=== PATIENT | female | born 1955 | race Caucasian/White ===

== ENCOUNTER 2016-06-25 10:41 | Emergency (ER) | payer MEDICARE, BC ==
--- NOTE | ~2016-06-25 | CT2 ---
[facility] A Service of [facility] RADIOLOGY TEXT RESULTS PATIENT: STEFFANIE CLIFFORD LOCATION: [facility] : 53 UNIT #: [id number] AGE: [address]: Janet Medeiros MD SEX: F ORDER DR: [id number] [place], [place] [address] [id number] E MR#: [id number] Acc #: [id number] NAME: STEFFANIE CLIFFORD : 1955 SEX: F STUDY DATE/TIME: 06/25/2016 11:47 UNIT: [facility] ROOM: STUDY DESCRIPTION: CT Abd and Pelv W Cont Attending Physician: Janet Medeiros M.D. Ordering Physician: Janet Medeiros M.D. Primary Care Physician: Harriet Gasca A.P.R.N. MEDICAL IMAGING REPORT This report is preliminary unless electronic signature is present EXAM CT abdomen and pelvis with contrast. INDICATION Left-sided abdominal pain for the past 2 weeks. PROCEDURE Contrast-enhanced CT of the abdomen and pelvis. This CT exam was performed with one or more of the following radiation dose reduction techniques: automatic exposure control, adjustment of mA and/or kV according to patient size, and iterative reconstruction. COMPARISON 02/19/2015 FINDINGS ABDOMEN WITH CONTRAST: There is linear scarring in the lung bases, similar to the prior. The liver, spleen, kidneys, adrenal glands, pancreas, gallbladder unremarkable. Small hiatal hernia. Small bowel loops are nondilated. There is postsurgical change in the descending colon. There is mild diffuse thickening of the colon greatest in the transverse and left side of the colon. No free intraperitoneal air or evidence for an abscess. PELVIS WITH CONTRAST: No pelvic mass or fluid. No aggressive appearing bone lesion. IMPRESSION 1. Diffuse colitis. No evidence for abscess or perforation. 2. No evidence for bowel obstruction. 3. Small hiatal hernia. [facility] A Service of [facility] RADIOLOGY TEXT RESULTS PATIENT: STEFFANIE CLIFFORD LOCATION: [facility] : 53 UNIT #: [id number] AGE: [address]: Janet Medeiros MD SEX: F ORDER DR: Dictated by... Mark Coats M.D. THIS IS AN ELECTRONICALLY VERIFIED REPORT Mark Coats M.D. at 06/26/2016 7:13 AM SANDY/maria teresa TD: 06/25/2016 14:14 JOB #: [id number] MEDICAL IMAGING REPORT COPY
[2016-06-25 10:30] LABS: BASOPHIL% 0.4 % (0-2.5); EOSINOPHIL% 0.3 % (0.0-7.0); HEMATOCRIT 35.7 % (35.0-45.0); HEMOGLOBIN 11.7 gm/dL (12.0-16.0); LYMPHOCYTE# 1.8 X10e3 (1.0-3.5); LYMPHOCYTE% 17.9 % (17.0-45.0); MEAN CELL VOLUME 82.9 FL (83-96); MEAN CORPUSCULAR HEMOGLOBIN 27.3 PG (28-34); MEAN CORPUSCULAR HGB CONC 32.9 g/dL (30-36); MEAN PLATELET VOLUME 7.8 FL (6.5-11.5); MONOCYTE# 0.8 X10e3 (0-1.0); MONOCYTE% 8.2 % (3.0-12.0); NEUTROPHIL# 7.2 X10e3 (1.5-7.1); NEUTROPHIL% 73.2 % (40-75); PLATELET COUNT 239 X10e3 (140-420); RED CELL DISTRIBUTION WIDTH 15.8 % (11.0-15.5); WHITE BLOOD COUNT 9.8 X10e3 (4.0-10.5)
[2016-06-25 10:32] LABS: DIFF IND NO
[~2016-06-25 10:41] MED LIST: BACLOFEN10 MG PO; CARVEDILOL3.125 MG PO; HYDROCODONE/APA1 T16 PO; IBUPROFEN600 MG PO; PERCOCET 10/3251 TAB PO; PRILOSEC PO; SINEMET-25/1001 TA1 PO; TIZANIDINE HCL4 M1 PO
[2016-06-25 11:08] LABS: ALBUMIN SERUM 3.7 g/dL (3.5-5.0); ALKALINE PHOSPHATASE 116 U/L (32-92); ALT (SGPT) 12 U/L (10-40); AMYLASE 11 U/L (0-46); AST (SGOT) 19 U/L (10-42); BILIRUBIN, DIRECT 0.1 mg/dL (0.0-0.2); BILIRUBIN,INDIRECT 0.6 mg/dL (0.0-0.9); BILIRUBIN,TOTAL 0.7 mg/dL (0.2-2.0); BLOOD UREA NITROGEN 11 mg/dL (9-23); BUN/CREATININE RATIO 13.75; CALCIUM SERUM 8.8 mg/dL (8.4-10.2); CARBON DIOXIDE 23 mmol/L (22-31); CHLORIDE 106 mmol/L (100-111); CREATININE SERUM 0.8 mg/dL (0.6-1.4); GLOM FILT RATE Estimated ABOVE60 mL/min (>60); GLUCOSE FASTING 124 mg/dL (70-110); LIPASE 23 U/L (22-51); PROTEIN TOTAL SERUM 7.2 g/dL (6.0-8.3); SODIUM 139 mmol/L (135-145)
[2016-06-25 11:37] LABS: URINE SOURCE CLEAN CATCH
[2016-06-25 11:42] LABS: URINE APPEARANCE CLEAR; URINE BILIRUBIN NEG (NEG); URINE BLOOD NEG (NEG); URINE COLOR YELLOW; URINE GLUCOSE NEG (NEG); URINE KETONE NEG (NEG); URINE LEUKOCYTE ESTERASE NEG (NEG); URINE NITRATE NEG (NEG); URINE PH 5.5 (5-8); URINE PROTEIN NEG (NEG); URINE UROBILINOGEN 0.2 MG/DL (NEG)
[2016-06-25 11:46] LABS: CULTURE INDICATED? NO
== END 2016-06-25 13:19 | disposition home or self-care (01) ==
LOC: CED 10:41
PROVIDERS: Student in an Organized Health Care Education/Training Program
DX: K52.9 Noninfective gastroenteritis and colitis, unspecified (principal); I10 Essential (primary) hypertension
CPT/HCPCS: 36415; 74177; 80048; 80076; 81003; 82150; 83605; 83690; 85025; 96361; 96374; 96375; 99284; J2270; J2405; Q9967

== ENCOUNTER → 2016-07-09 | Outpatient (CLI) | payer MEDICARE, BC ==
--- NOTE | ~2016-07-09 | CR169 ---
[facility] A Service of [facility] RADIOLOGY TEXT RESULTS PATIENT: STEFFANIE CLIFFORD LOCATION: [facility] : 53 UNIT #: [id number] AGE: [address]: CLARE GONZALEZ SEX: F ORDER DR: [id number] [address] [address] [id number] O MR#: [id number] Acc #: [id number] NAME: STEFFANIE CLIFFORD : 1955 SEX: F STUDY DATE/TIME: 07/09/2016 10:18 UNIT: [facility] ROOM: STUDY DESCRIPTION: CR Knee 2 Views Lt Attending Physician: Clare Gonzalez Aprn Referring Physician: Clare Gonzalez Aprn Ordering Physician: Physician Non-Staff Primary Care Physician: Clare Gonzalez Aprn MEDICAL IMAGING REPORT This report is preliminary unless electronic signature is present EXAM 2 views left knee DATE OF EXAMINATION 07/09/2016 at 10:18 HISTORY Left knee pain and swelling, getting worse in the past week. Symptoms began January 2016. Patient fell. COMPARISON None. FINDINGS No acute fracture or joint dislocation is seen. There is mild medial compartment joint space narrowing. No definite joint effusion. Small enthesophyte is present at the anterosuperior patellar margin at the quadriceps tendon insertion. IMPRESSION Minor degenerative changes of the left knee. No acute findings. Dictated by... Tania Dye M.D. THIS IS AN ELECTRONICALLY VERIFIED REPORT Tania Dye M.D. at 07/10/2016 10:06 PM Jose A TD: 07/09/2016 15:00 JOB #: [id number] MEDICAL IMAGING REPORT [facility] A Service [facility] RADIOLOGY TEXT RESULTS PATIENT: STEFFANIE CLIFFORD LOCATION: [facility] : 53 UNIT #: [id number] AGE: [address]: CLARE GONZALEZ SEX: F ORDER DR: GAIL
== END | disposition home or self-care (01) ==
LOC: CRAD 10:11
DX: M25.562 Pain in left knee (principal); M17.12 Unilateral primary osteoarthritis, left knee; W01.0XXA Fall on same level from slipping, tripping and stumbling without subsequent striking against object, initial encounter
CPT/HCPCS: 73560

== ENCOUNTER → 2016-07-13 | Outpatient (CLI) | payer MEDICARE, BC ==
--- NOTE | ~2016-07-13 | US85 ---
[facility] A Service of [facility] RADIOLOGY TEXT RESULTS PATIENT: STEFFANIE CLIFFORD LOCATION: [place] : 53 UNIT #: [id number] AGE: [address]: CLARE GONZALEZ SEX: F ORDER DR: [id number] [facility] [address] [place], [place] [address] [id number] O MR#: [id number] Acc #: [id number] NAME: STEFFANIE CLIFFORD : 1955 SEX: F STUDY DATE/TIME: 07/13/2016 15:15 UNIT: [facility] ROOM: STUDY DESCRIPTION: [facility] [employer] [facility] or [facility] Attending Physician: Clare Gonzalez Aprn Referring Physician: Clare Gonzalez Aprn Ordering Physician: Physician Non-Staff Primary Care Physician: Clare Gonzalez Aprn MEDICAL IMAGING REPORT This report is preliminary unless electronic signature is present EXAM Left lower extremity venous duplex, 07/13/2016 HISTORY Left lower extremity pain and swelling since 07/01/2016 status post fall. Evaluate for deep vein thrombosis. FINDINGS Sims-scale images of the left lower extremity were obtained, as well as Doppler waveform spectral analysis and color flow Doppler imaging. There is normal blood flow and compressibility in the left common femoral vein as well as the left deep femoral vein, superficial femoral vein and popliteal vein. Normal blood flow and compressibility is seen in the left calf veins. There is a 5 cm x 9 mm x 1.2-cm fluid collection in the lateral left leg, at the site of bruising, characteristic of hematoma or seroma. IMPRESSION 1. No evidence of deep vein thrombosis within the left lower extremity. 2. 5-cm fluid collection lateral aspect of the left leg, at the site of bruising, characteristic of hematoma or seroma. Dictated by... Kt Gibbs M.D. THIS IS AN ELECTRONICALLY VERIFIED REPORT Kt Gibbs M.D. at 07/14/2016 8:00 AM KRT/an TD: 07/13/2016 21:35 JOB #: [id number] [facility] A Service of [facility] RADIOLOGY TEXT RESULTS PATIENT: STEFFANIE CLIFFORD LOCATION: [facility] #: [id number] : 53 UNIT #: [id number] AGE: [address]: CLARE GONZALEZ SEX: F ORDER DR: MEDICAL IMAGING REPORT COPY
== END | disposition home or self-care (01) ==
LOC: CGUS 14:44
DX: L03.116 Cellulitis of left lower limb (principal); S80.12XA Contusion of left lower leg, initial encounter
CPT/HCPCS: 93971

== ENCOUNTER 2016-07-15 07:56 | Emergency (ER) | payer MEDICARE, BC | END 2016-07-15 08:59 | disposition home or self-care (01) | LOC: CED 07:56 | DX: R11.2 Nausea with vomiting, unspecified (principal); R13.10 Dysphagia, unspecified; I10 Essential (primary) hypertension | CPT/HCPCS: 99282 ==